=== PATIENT | male | born 1960 | race Caucasian/White ===

== ENCOUNTER 2020-06-27 13:07 | Emergency (ER) | payer OTHER ==
[~2020-06-27] VITALS: Ht 17.8 cm; Wt 106.8 kg
[2020-06-27 13:28] LABS: BASO % 0.3 % (0.0-2.0); EOS # 0.2 (0.0-0.7); EOS % 2.9 % (0-4.0); GRAN # 4.2 (1.4-6.5); GRAN % 58.6 % (42.2-75.2); HEMATOCRIT 44.4 % (42.0-52.0); HEMOGLOBIN 15.2 g/dl (13.5-18.0); LYMPH # 2.2 (1.2-3.4); LYMPH % 30.5 % (20.0-51.0); MEAN CELL VOLUME 85 fl (80.0-100.0); MEAN CORPUSCULAR HEMOGLOBIN 29 pg (27.0-31.0); MEAN CORPUSCULAR HGB CONC 34 g/dl (33.0-37.0); MONO # 0.5 (0.1-0.6); MONO % 7.3 % (1.7-9.3); PLATELET COUNT 246 K/mm3 (130-400); RED BLOOD COUNT 5.21 M/mm3 (4.20-5.60); REDCELL DISTRIBUTION WIDTH-CV 12.7 % (11.5-14.5)
[2020-06-27 13:33] LABS: INR 1.1 (0.8-3.0); PROTHROMBIN TIME 12.4 SECONDS (9.7-12.8)
[2020-06-27] MEDS ORDERED: GLUCOPHAGE500 MG/TAB PO (13:41)
[2020-06-27 13:53] LABS: ALANINE AMINOTRANSFERASE 25 U/L (4-49); ALBUMIN 4.8 gm/dL (3.5-5.0); ALKALINE PHOSPHATASE 92 U/L (50-136); ANION GAP 12 mmol/L (7-16); AST,SGOT 40 U/L (15-37); BILIRUBIN,TOTAL 0.8 mg/dL (0.0-1.0); BLOOD UREA NITROGEN 16 mg/dL (9-20); CALCIUM 9.3 mg/dL (8.4-10.2); CARBON DIOXIDE 23 mmol/L (22-30); CHLORIDE 102 mmol/L (98-107); CREATININE, serum 0.98 (0.66-1.25); GLUCOSE 196 mg/dL (74-106); LIPASE 75 U/L (23-300); POTASSIUM 4.2 mmol/L (3.4-5.0); SODIUM 137 mmol/L (137-145); TOTAL PROTEIN 8.1 gm/dL (6.4-8.2)
[2020-06-27 14:06] LABS: TROPONIN-I < 0.012 ng/mL (0.000-0.035)
[2020-06-27 17:28] VITALS: BP 129/69; PULSE 79; TEMP 98.3
== END 2020-06-27 17:20 | disposition home or self-care (01) ==
LOC: COL.ER 13:07
PROVIDERS: Emergency Medicine
DX: R10.11 Right upper quadrant pain (principal); Z79.84 Long term (current) use of oral hypoglycemic drugs
CPT/HCPCS: J1885; J7030

== ENCOUNTER 2022-10-19 00:09 | Emergency (ER) | payer OTHER ==
[~2022-10-19] VITALS: Ht 170.2 cm; Wt 111.4 kg
[~2022-10-19 00:09] MED LIST: GLUCOPHAGE500 MG/TAB PO; NORCO 325 MG-51 TAB PO
[2022-10-19 00:18] VITALS: TEMP 98.4
[2022-10-19] MEDS ORDERED: ZITHROMAX Z PA250 MG PO (01:19)
[2022-10-19] MEDS ORDERED: MEDROL 4MG DOSPA4 MG PO (01:19)
[2022-10-19 01:34] VITALS: BP 133/70; PULSE 99
== END 2022-10-19 01:35 | disposition home or self-care (01) ==
LOC: COL.ER 00:09
DX: J40 Bronchitis, not specified as acute or chronic (principal); Z20.822 Contact with and (suspected) exposure to COVID-19; Z28.310 Unvaccinated for COVID-19

== ENCOUNTER 2024-03-25 10:54 | Emergency (ER) | payer OTHER ==
[~2024-03-25] VITALS: Ht 170.2 cm; Wt 112.7 kg
[~2024-03-25 10:54] MED LIST changes: +MEDROL 4MG DOSPA4 MG PO; +ZITHROMAX Z PA250 MG PO
[2024-03-25 10:58] VITALS: TEMP 98
[2024-03-25] MEDS ORDERED: PREDNISONE20 MG PO (12:13)
[2024-03-25] MEDS ORDERED: ZITHROMAX Z PA250 MG PO (12:13)
[2024-03-25] MEDS ORDERED: methylPREDNISolone Sod Succ 125 MG/2 ML VIAL IV ONE (12:30)
[2024-03-25] MEDS ORDERED: cefTRIAXone 1 G in Water For Injection,Sterile 10 ML IV ONE (12:30)
[2024-03-25 12:32] VITALS: BP 149/90; PULSE 96
== END 2024-03-25 12:40 | disposition home or self-care (01) ==
LOC: COL.ER 10:54
DX: J20.9 Acute bronchitis, unspecified (principal)
CPT/HCPCS: J0696; J2919